=== PATIENT | female | born 1945 | race Hispanic/Latino ===

== ENCOUNTER 2017-05-31 12:57 | Observation (INO) | payer OTHER ==
[~2017-05-31 12:57] MED LIST: DULO60CA63 PO; METF500T6 PO; ROSU20TA PO
[2017-05-31] MEDS ORDERED: SODIUM CHLORIDE 0.9% 1000ML 1,000 ML IV ONE (13:32)
[2017-05-31 14:00] LABS: BASOPHILS % (AUTO) 0.5 % (0.0-5.0); EOSINOPHILS % (AUTO) 3.1 % (0.0-8.0); HEMATOCRIT 29.6 % (36-48); MEAN CORPUSCULAR HEMOGLOBIN 26.3 pg (27.0-33.0); MEAN CORPUSCULAR HGB CONC 32.1 g/dL (32.0-36.0); MONOCYTES % (AUTO) 7.1 % (3.0-13.0); NEUTROPHILS % (AUTO) 65.3 % (40.0-77.0); PLATELET COUNT (AUTO) 163 K/uL (130-400); RED BLOOD CELL COUNT(AUTO) 3.61 MIL/uL (4.00-5.50); RED CELL DISTRIBUTION WIDTH 30.2 % (11.0-15.5); WHITE BLOOD COUNT (AUTO) 12.3 K/uL (4.8-10.8)
[2017-05-31 14:10] LABS: CREATININE 0.8 mg/dL (0.5-1.5); POTASSIUM 3.7 mmol/L (3.5-5.1)
[2017-05-31 14:15] LABS: INR 0.97 (0.85-1.15); PARTIAL THROMBOPLASTIN TIME 24.3 SEC (26.3-35.5); PROTHROMBIN TIME 10.2 SEC (9.6-11.6)
[2017-05-31 14:24] LABS: ALBUMIN 3.1 g/dL (3.5-5.0); BILIRUBIN,TOTAL 0.3 mg/dL (0.2-1.0); CREATINE KINASE MB 0.6 ng/mL (0.5-3.6); TOTAL PROTEIN, SERUM 6.9 g/dL (6.0-8.3)
[2017-05-31] MEDS ORDERED: IOPAMIDOL-370 75 ML VIAL IV ONE (14:25)
[2017-05-31] MEDS ORDERED: MAG HYDROX/AL HYDROX/SIMETH ES 30 ML SUSP UDCUP PO PRN (18:00)
[2017-05-31] MEDS ORDERED: LACTULOSE 20 GM/30 ML UDCUP PO PRN (18:00)
[2017-05-31] MEDS ORDERED: ACETAMINOPHEN 325 MG TAB PO PRN (18:00)
[2017-05-31] MEDS ORDERED: ONDANSETRON HCL 4 MG/2 ML VIAL IV PRN (18:00)
[2017-05-31] MEDS ORDERED: GUAIFENESIN-DM 200/20 MG 10 ML PO PRN (18:00)
[2017-05-31 18:45] LABS: RETICULOCYTE % (AUTO) 2.47 % (0.42-2.23)
[2017-05-31 18:58] LABS: % IRON SATURATION 11.1 % (22-44)
[2017-05-31] MEDS ORDERED: FAMOTIDINE 20MG TAB 20 MG TAB ONE (20:29)
[2017-06-01] MEDS ORDERED: SODIUM CHLORIDE 0.9% 1000ML 1,000 ML IV SCH (01:14)
[2017-06-01] MEDS ORDERED: DEXTROSE 50%-WATER 50 ML DISP.SYRIN IV PRN (01:15)
[2017-06-01] MEDS ORDERED: GLUCAGON 1MG KIT 1 MG ML IM PRN (01:15)
[2017-06-01] MEDS ORDERED: POTASSIUM CHLORIDE 20MEQ/100ML 100 ML IV PRN ×2 (01:15→11:15)
[2017-06-01] MEDS ORDERED: POTASSIUM CHLORIDE 10% ELIXIR 20 MEQ/15 ML UDCUP PO PRN ×2 (01:15→11:15)
[2017-06-01] MEDS ORDERED: POTASSIUM CHLORIDE 20 MEQ ERTAB PO PRN ×2 (01:15→11:15)
[2017-06-01] MEDS ORDERED: HYDRALAZINE HCL 20 MG/ML VIAL IV PRN (01:15)
[2017-06-01] MEDS ORDERED: CLONIDINE HCL 0.1 MG TABLET PO PRN (01:15)
[2017-06-01] MEDS ORDERED: LIDOCAINE HCL-MPF 1% 2ML VIAL IVP PRN ×2 (01:15→11:15)
[2017-06-01 02:05] LABS: HEMATOCRIT 23.4 % (36-48)
[2017-06-01] MEDS ORDERED: SODIUM CHLORIDE 0.9% 1000ML 1,000 ML IV ONE (04:06)
[2017-06-01 04:43] LABS: CREATININE 0.8 mg/dL (0.5-1.5); POTASSIUM 4.1 mmol/L (3.5-5.1)
[2017-06-01 05:52] LABS: HEMATOCRIT 23.8 % (36-48)
[2017-06-01 06:09] LABS: MEAN CORPUSCULAR HEMOGLOBIN 26.9 pg (27.0-33.0); MEAN CORPUSCULAR HGB CONC 33.2 g/dL (32.0-36.0); MEAN CORPUSCULAR VOLUME 81.2 fL (79-99); PLATELET COUNT (AUTO) 109 K/uL (130-400); RED BLOOD CELL COUNT(AUTO) 2.93 MIL/uL (4.00-5.50); WHITE BLOOD COUNT (AUTO) 6.7 K/uL (4.8-10.8)
[2017-06-01] MEDS ORDERED: INSULIN HUMULIN R 100 UNIT/ML 3ML SQ SCH ×2 (07:30→11:30)
[2017-06-01 09:13] VITALS: BP 132/71
[2017-06-01] MEDS: FAMOTIDINE 20MG TAB 20 MG TAB PO SCH ×2 (09:50→20:54)
[2017-06-01] MEDS ORDERED: COMPOUND IV MISC 1 EACH IVSOLN MISC PRN (11:30)
[2017-06-01 11:47] LABS: HEMATOCRIT 26.2 % (36-48)
[2017-06-01 12:00] VITALS: BP 125/70
[2017-06-01] MEDS: IRON SUCROSE COMPLEX 100 MG in SODIUM CHLORIDE 0.9% 50 ML IV SCH (12:18)
[2017-06-01] MEDS ORDERED: [UNRECOGNIZED DRUG - OTHER] (19:29)
[2017-06-01] MEDS ORDERED: ZOLP10TA6 PO (19:29)
[2017-06-01 19:54] VITALS: BP 153/79
[2017-06-01] MEDS: ACETAMINOPHEN 325 MG TAB PO PRN (21:09)
[2017-06-01 23:26] VITALS: BP 105/65
[2017-06-02 03:35] VITALS: BP 117/73
[2017-06-02 04:47] LABS: MEAN CORPUSCULAR HEMOGLOBIN 26.8 pg (27.0-33.0); MEAN CORPUSCULAR HGB CONC 32.9 g/dL (32.0-36.0); MEAN CORPUSCULAR VOLUME 81.5 fL (79-99); PLATELET COUNT (AUTO) 114 K/uL (130-400); RED BLOOD CELL COUNT(AUTO) 3.43 MIL/uL (4.00-5.50); RED CELL DISTRIBUTION WIDTH 28.1 % (11.0-15.5); WHITE BLOOD COUNT (AUTO) 5.6 K/uL (4.8-10.8)
[2017-06-02 05:14] LABS: CREATININE 0.9 mg/dL (0.5-1.5); POTASSIUM 3.8 mmol/L (3.5-5.1)
[2017-06-02 07:58] VITALS: BP 104/68
[2017-06-02] MEDS: ACETAMINOPHEN 325 MG TAB PO PRN (10:44)
[2017-06-02] MEDS: FAMOTIDINE 20MG TAB 20 MG TAB PO SCH (10:44)
[2017-06-02] MEDS: IRON SUCROSE COMPLEX 100 MG in SODIUM CHLORIDE 0.9% 50 ML IV SCH (10:45)
[2017-06-02 11:34] VITALS: BP 142/74
[2017-06-02] MEDS ORDERED: GADOBENATE DIMEGLUMINE 20 ML IV ONE (11:44)
[2017-06-02 15:27] VITALS: BP 142/82
== END 2017-06-02 16:35 | disposition home or self-care (01) ==
LOC: EDH 12:57 → EDHIP 17:50 → WSH 06-01 09:58
PROVIDERS: ADMIT Family Medicine; ATTEND Family Medicine
DX: D50.9 Iron deficiency anemia, unspecified (principal); E11.9 Type 2 diabetes mellitus without complications; I10 Essential (primary) hypertension; E78.5 Hyperlipidemia, unspecified; K57.92 Diverticulitis of intestine, part unspecified, without perforation or abscess without bleeding; Z79.4 Long term (current) use of insulin
CPT/HCPCS: 36415 ×3; 36430; 70553; 71045; 74177; 80048 ×2; 80053; 82270; 82550; 82553; 82607; 82728; 82746; 82948 ×4; 83874; 84484; 85025; 85027 ×2; 85610; 85730; 86850; 86900; 86901; 86922; 93005; 96374; 96376; 99285; A4600; A9577; G0378 ×47; J1756; J7030 ×2; P9016; Q9967

== ENCOUNTER 2017-07-23 10:17 | Day surgery (SDC) | payer OTHER ==
[~2017-07-23] VITALS: Ht 160 cm; Wt 63.3 kg
[~2017-07-23 10:17] MED LIST changes: +SODIUM CHLORIDE 0.9% 1000ML 1,000 ML IV ONE; +ZOLP10TA6 PO; +[UNRECOGNIZED DRUG - OTHER]
[2017-07-23] MEDS ORDERED: PROPOFOL 10 MG/ML 20ML VIAL IV ONE ×2 (12:19→12:20)
[2017-07-23 13:01] VITALS: BP 108/53
== END 2017-07-23 14:00 | disposition home or self-care (01) ==
LOC: ENDO 10:17 → DAH 10:17 → ENDO 14:00
PROVIDERS: ATTEND Internal Medicine Gastroenterology
DX: D50.8 Other iron deficiency anemias (principal); K57.30 Diverticulosis of large intestine without perforation or abscess without bleeding; K64.8 Other hemorrhoids; K59.09 Other constipation; K29.50 Unspecified chronic gastritis without bleeding; I86.4 Gastric varices; I85.00 Esophageal varices without bleeding; E78.4 Other hyperlipidemia; F32.9 Major depressive disorder, single episode, unspecified; Z79.82 Long term (current) use of aspirin; Z79.899 Other long term (current) drug therapy; Z90.710 Acquired absence of both cervix and uterus; Z79.84 Long term (current) use of oral hypoglycemic drugs; E78.5 Hyperlipidemia, unspecified; Z68.30 Body mass index [BMI] 30.0-30.9, adult
CPT/HCPCS: 43239; 45378; 82948 ×2; 88305; 88312; A4606; J2704 ×2; J7030

== ENCOUNTER → 2018-05-05 | Outpatient (CLI) | payer OTHER ==
[~2018-05-05] MED LIST changes: +METF-444 PO; -METF500T6 PO; -SODIUM CHLORIDE 0.9% 1000ML 1,000 ML IV ONE
== END | disposition home or self-care (01) ==
LOC: RAH 07:37
PROVIDERS: ATTEND Internal Medicine Gastroenterology
DX: N28.1 Cyst of kidney, acquired (principal); K76.89 Other specified diseases of liver; R93.3 Abnormal findings on diagnostic imaging of other parts of digestive tract
CPT/HCPCS: 76700; 93975

== ENCOUNTER → 2019-02-07 | Outpatient (CLI) | payer OTHER ==
[~2019-02-07] MED LIST changes: -DULO60CA63 PO; +DULO60CA64 PO; +PANT40TA25 PO; -ROSU20TA PO; +ROSU20TA23 PO
== END | disposition home or self-care (01) ==
LOC: RAH 08:54
PROVIDERS: ATTEND Family Medicine
DX: R10.11 Right upper quadrant pain (principal)
CPT/HCPCS: 76700

== ENCOUNTER 2019-05-28 22:40 | Observation (INO) | payer OTHER ==
[2019-05-28] MEDS ORDERED: CEFTRIAXONE SODIUM 2 GM VIAL ONE (23:16)
[2019-05-28] MEDS ORDERED: ALBUMIN (HUMAN) 25% 50 ML IV ONE (23:17)
[2019-05-28 23:18] LABS: BASOPHILS % (AUTO) 0.5 % (0.0-5.0); EOSINOPHILS % (AUTO) 1.6 % (0.0-8.0); HEMATOCRIT 29.5 % (36-48); LYMPHOCYTES % (AUTO) 19.9 % (21.0-51.0); MEAN CORPUSCULAR HEMOGLOBIN 25.1 pg (27.0-33.0); MEAN CORPUSCULAR HGB CONC 30.5 g/dL (32.0-36.0); MEAN CORPUSCULAR VOLUME 82.4 fL (79-99); MONOCYTES % (AUTO) 7.3 % (3.0-13.0); NEUTROPHILS % (AUTO) 69.7 % (40.0-77.0); PLATELET COUNT (AUTO) 161 K/uL (130-400); RED BLOOD CELL COUNT(AUTO) 3.58 MIL/uL (4.00-5.50); RED CELL DISTRIBUTION WIDTH 23.5 % (11.0-15.5)
[2019-05-28] MEDS ORDERED: SODIUM CHLORIDE 0.9% 1000ML 1,000 ML IV ONE (23:18)
[2019-05-28 23:30] LABS: CREATININE 1.1 mg/dL (0.5-1.5); POTASSIUM 4.2 mmol/L (3.5-5.1)
[2019-05-28 23:33] LABS: INR 1.07 (0.85-1.15); PARTIAL THROMBOPLASTIN TIME 25.4 SEC (26.3-35.5); PROTHROMBIN TIME 11.2 SEC (9.6-11.6)
[2019-05-28 23:35] LABS: ALBUMIN 3.2 g/dL (3.5-5.0); BILIRUBIN,DIRECT 0.1 mg/dL (0.0-0.3); BILIRUBIN,TOTAL 0.4 mg/dL (0.2-1.0); TOTAL PROTEIN, SERUM 7.7 g/dL (6.0-8.3)
[2019-05-29 00:09] LABS: APPEARANCE,URINE Clear (CLEAR); BILIRUBIN,URINE Negative (NEGATIVE); COLOR,URINE Yellow (YELLOW); GLUCOSE, URINE (UA) 500 mg/dL (NEGATIVE); KETONES,URINE Trace mg/dL (NEGATIVE); LEUKOCYTE ESTERASE ,URINE Negative (NEGATIVE); NITRATE,URINE Negative (NEGATIVE); OCCULT BLOOD,URINE Negative (NEGATIVE); PH,URINE 6.5 (5.0-8.0); PROTEIN,URINE Negative (NEGATIVE)
[2019-05-29] MEDS ORDERED: SODIUM CHLORIDE 0.9% 100 ML IV ONE ×3 (02:14→22:28)
[2019-05-29] MEDS ORDERED: ZOSYN 3.375GM+NS 50ML 50 ML IV ONE ×3 (02:14→21:54)
[2019-05-29] MEDS ORDERED: OCTREOTIDE ACETATE 200 MCG/ML 5 ML VIAL ONE ×2 (03:53→11:16)
[2019-05-29 04:33] LABS: BASOPHILS % (AUTO) 0.4 % (0.0-5.0); EOSINOPHILS % (AUTO) 2.6 % (0.0-8.0); HEMATOCRIT 23.6 % (36-48); LYMPHOCYTES % (AUTO) 24.9 % (21.0-51.0); MEAN CORPUSCULAR HEMOGLOBIN 25.6 pg (27.0-33.0); MEAN CORPUSCULAR HGB CONC 30.5 g/dL (32.0-36.0); MONOCYTES % (AUTO) 7.7 % (3.0-13.0); NEUTROPHILS % (AUTO) 63.8 % (40.0-77.0); PLATELET COUNT (AUTO) 100 K/uL (130-400); RED BLOOD CELL COUNT(AUTO) 2.81 MIL/uL (4.00-5.50); RED CELL DISTRIBUTION WIDTH 23.6 % (11.0-15.5); WHITE BLOOD COUNT (AUTO) 7.8 K/uL (4.8-10.8)
[2019-05-29 04:40] LABS: CREATININE 0.9 mg/dL (0.5-1.5); POTASSIUM 3.9 mmol/L (3.5-5.1)
[2019-05-29] MEDS ORDERED: SODIUM CHLORIDE 0.9% 250 ML IV ONE (07:55)
[2019-05-29] MEDS ORDERED: SODIUM CHLORIDE 0.9% 200 ML IV ONE (11:16)
[2019-05-29] MEDS ORDERED: DEXTROSE 50%-WATER 50 ML DISP.SYRIN IV PRN (13:00)
[2019-05-29] MEDS ORDERED: GLUCAGON 1MG KIT 1 MG ML IM PRN (13:00)
[2019-05-29] MEDS ORDERED: MAGNESIUM 2GM PREMIX 50ML 50 ML IV PRN (13:00)
[2019-05-29] MEDS ORDERED: ONDANSETRON HCL 4 MG/2 ML VIAL IVP PRN (13:00)
[2019-05-29] MEDS ORDERED: HYDRALAZINE HCL 20 MG/ML VIAL IV PRN (13:00)
[2019-05-29 14:21] LABS: HEMATOCRIT 28.3 % (36-48)
[2019-05-29] MEDS ORDERED: DULOXETINE HCL 30 MG CAP PO SCH (14:30)
[2019-05-29] MEDS ORDERED: PHYTONADIONE 10 MG/1 ML AMP SQ SCH (15:00)
[2019-05-29] MEDS ORDERED: OCTREOTIDE ACETATE 1,250 MCG in SODIUM CHLORIDE 0.9% 250 ML IV SCH (15:00)
[2019-05-29] MEDS ORDERED: PHYTONADIONE 10 MG/1 ML AMP ONE (15:08)
[2019-05-29] MEDS: INSULIN HUMULIN R 100 UNIT/ML 3ML SQ SCH ×2 (16:30→21:00)
[2019-05-29] MEDS: METFORMIN HCL 500 MG TABLET PO SCH (17:00)
[2019-05-29] MEDS ORDERED: SODIUM CHLORIDE 0.9% 1000ML 1,000 ML IV ONE (18:21)
[2019-05-29 19:34] LABS: HEMATOCRIT 28.8 % (36-48)
[2019-05-29] MEDS: ATORVASTATIN CALCIUM 40 MG TABLET PO SCH (21:00)
[2019-05-29] MEDS: ZOLPIDEM TARTRATE 5 MG TAB PO SCH (21:00)
[2019-05-29] MEDS ORDERED: METFORMIN HCL 500 MG TABLET ONE (21:54)
[2019-05-29] MEDS ORDERED: ZOLPIDEM TARTRATE 5 MG TAB ONE (21:55)
[2019-05-30] VITALS (21 sets, daily range): BP systolic 18–128; BP diastolic 35–68
[2019-05-30] MEDS: INSULIN HUMULIN R 100 UNIT/ML 3ML SQ SCH ×4 (05:51→20:34)
[2019-05-30] MEDS: METFORMIN HCL 500 MG TABLET PO SCH ×2 (07:54→16:33)
[2019-05-30] MEDS ORDERED: CEFTRIAXONE SODIUM 500 MG VIAL IV SCH (09:00)
[2019-05-30] MEDS ORDERED: PROPOFOL 10 MG/ML 20ML VIAL IV ONE (11:24)
--- NOTE | 2019-05-30 14:23 | NUR ---
DC PLAN VISITED WITH PATIENT. PATIENT GETTING A BED BATH. Addendum: 05/30/19 at 1430 by MARILU CUEVAS RN CM Amended: Links added.
--- NOTE | 2019-05-30 15:26 | NUR ---
DC PLAN VISITED WITH PATIENT. PATENT LIVES WITH SPOUSE. INDEPENDENT ABLE TO PERFORM ADL'S. PATIENT HAS NO SERVICES OR DME'S. FEELS SAFE TO RETURN HOME. Addendum: 05/30/19 at 1531 by MARILU CUEVAS RN CM Amended: Links added.
[2019-05-30] MEDS: DULOXETINE HCL 30 MG CAP PO SCH (16:33)
[2019-05-30] MEDS: PANTOPRAZOLE SODIUM 40 MG TABLET.DR PO SCH (20:34)
[2019-05-30] MEDS: ATORVASTATIN CALCIUM 40 MG TABLET PO SCH (20:34)
[2019-05-30] MEDS: ZOLPIDEM TARTRATE 5 MG TAB PO SCH (20:34)
[2019-05-31 03:47] LABS: BASOPHILS % (AUTO) 0.2 % (0.0-5.0); EOSINOPHILS % (AUTO) 3.1 % (0.0-8.0); HEMATOCRIT 26.3 % (36-48); LYMPHOCYTES % (AUTO) 22.8 % (21.0-51.0); MEAN CORPUSCULAR HGB CONC 30.8 g/dL (32.0-36.0); MEAN CORPUSCULAR VOLUME 84.6 fL (79-99); MONOCYTES % (AUTO) 7.8 % (3.0-13.0); NEUTROPHILS % (AUTO) 65.6 % (40.0-77.0); PLATELET COUNT (AUTO) 86 K/uL (130-400); RED BLOOD CELL COUNT(AUTO) 3.11 MIL/uL (4.00-5.50); RED CELL DISTRIBUTION WIDTH 22.4 % (11.0-15.5); WHITE BLOOD COUNT (AUTO) 4.3 K/uL (4.8-10.8)
[2019-05-31 03:55] LABS: CREATININE 0.9 mg/dL (0.5-1.5); POTASSIUM 3.7 mmol/L (3.5-5.1)
[2019-05-31 04:00] VITALS: BP 114/66
[2019-05-31] MEDS: INSULIN HUMULIN R 100 UNIT/ML 3ML SQ SCH (06:37)
--- NOTE | 2019-05-31 07:30 | NUR ---
ASSESSMENT ENCOUNTERED PT A&OX3, CALM COOPERATIVE AND DOES NOT APPEAR TO BE IN ANY DISTRESS NOR ANY NEURO DEFICITS PRESENT. PT DENIES PAIN, SOB, NAUSEA. PT IS AMBULATORY, GAIT STEADY AND STRONG WITH STAND BY ASSIST. PT IS ABLE TO TOLERATE FOODS, FLUIDS AND MEDICATION WITH NO THROAT CLEARING OR COUGH. CALL LIGHT WITHIN REACH, FAMILY AT BEDSIDE.
[2019-05-31 07:39] VITALS: BP 112/63
[2019-05-31] MEDS: PANTOPRAZOLE SODIUM 40 MG TABLET.DR PO SCH (11:03)
[2019-05-31] MEDS: DULOXETINE HCL 30 MG CAP PO SCH (11:03)
[2019-05-31] MEDS: METFORMIN HCL 500 MG TABLET PO SCH (11:03)
[2019-05-31] MEDS ORDERED: DOCU-116 PO (11:23)
[2019-05-31] MEDS ORDERED: FERR325T22 PO (11:23)
[2019-05-31 11:26] VITALS: BP 119/66
--- NOTE | 2019-05-31 17:08 | NUR ---
[id number] Patient signed KATHLEEN Letter( at bedside), I faxed KATHLEEN Letter to [id number] and placed in chart under consent tab
== END 2019-05-31 13:40 | disposition home or self-care (01) ==
LOC: EDH 22:40 → INTOOBSV 05-29 00:24 → EDHIP 05-29 00:24 → 2DH 05-29 23:05
PROVIDERS: ADMIT Internal Medicine Critical Care Medicine; ATTEND Internal Medicine Critical Care Medicine
DX: K92.2 Gastrointestinal hemorrhage, unspecified (principal); K92.0 Hematemesis; I85.00 Esophageal varices without bleeding; D62 Acute posthemorrhagic anemia; E11.9 Type 2 diabetes mellitus without complications; N28.9 Disorder of kidney and ureter, unspecified; K74.60 Unspecified cirrhosis of liver; Z87.11 Personal history of peptic ulcer disease; Z90.710 Acquired absence of both cervix and uterus
CPT/HCPCS: 36415 ×3; 36430; 43235; 80048 ×3; 80076; 81003; 82550; 82948 ×7; 83690; 84484; 85014 ×2; 85018 ×2; 85025 ×3; 85610; 85730; 86850; 86900; 86901; 86922; 87040 ×2; 87077; 87186; 93005; 99291; A4215; A4221; A4222; A4223; A4606; A4620; A4663; G0378 ×24; J0696 ×3; J2354 ×3; J2543 ×3; J2704; J3430; J7030 ×4; P9016; P9047

== ENCOUNTER 2019-10-12 | Inpatient (IN) | payer OTHER | END 2019-10-13 12:07 | disposition EXP | DRG 208 | PROVIDERS: ADMIT Internal Medicine | PROC: 30233K1 Transfusion of Nonautologous Frozen Plasma into Peripheral Vein, Percutaneous Approach (ICD-10-PCS; 2019-10-12) | PROC: 30233N1 Transfusion of Nonautologous Red Blood Cells into Peripheral Vein, Percutaneous Approach (ICD-10-PCS; 2019-10-12) | PROC: 0BH17EZ Insertion of Endotracheal Airway into Trachea, Via Natural or Artificial Opening (ICD-10-PCS; principal; 2019-10-13) | PROC: 5A1945Z Respiratory Ventilation, 24-96 Consecutive Hours (ICD-10-PCS; 2019-10-13) | PROC: 04HY32Z Insertion of Monitoring Device into Lower Artery, Percutaneous Approach (ICD-10-PCS; 2019-10-13) | PROC: 06HY33Z Insertion of Infusion Device into Lower Vein, Percutaneous Approach (ICD-10-PCS; 2019-10-13) | PROC: B54BZZA Ultrasonography of Right Lower Extremity Veins, Guidance (ICD-10-PCS; 2019-10-13) ==